=== PATIENT | male | born 1975 | race Caucasian/White ===

== ENCOUNTER 2022-10-24 00:49 | Emergency (ER) | payer BC, OTHER ==
[2022-10-24 06:00] LABS: CORONAVIRUS COVID-19 NAA NEGATIVE (NEGATIVE); RESPIRATORY SYNCYTIAL VIR NAA NEGATIVE (NEGATIVE)
== END 2022-10-24 01:30 | disposition home or self-care (01) ==
LOC: VM.ED 00:49
DX: J02.9 Acute pharyngitis, unspecified (principal); Z88.0 Allergy status to penicillin; Z20.822 Contact with and (suspected) exposure to COVID-19
CPT/HCPCS: 0241U; 99283